=== PATIENT | male | born 1980 | race Two or more races ===

== ENCOUNTER → 2018-10-22 | Outpatient (CLI) | payer OTHER | LOC: GIMAGING 14:34 → EDSTATUS 16:13 | PROVIDERS: ATTEND Family Medicine | DX: J40 Bronchitis, not specified as acute or chronic (principal); S32.010A Wedge compression fracture of first lumbar vertebra, initial encounter for closed fracture; Z87.01 Personal history of pneumonia (recurrent) | CPT/HCPCS: 71046-PO ==